=== PATIENT | male | born 1990 | race African-American/Black ===

== ENCOUNTER 2021-06-19 06:53 | Emergency (ER) | payer MEDICAID, SELFPAY ==
[2021-06-19] VITALS (16 sets, daily range): BP systolic 122–156; BP diastolic 57–83; PULSE 97–121; RESP 14–26; TEMP 37.2–38.9; O2SAT 94–100
--- NOTE | ~2021-06-19 | CT_ITS ---
EXAMINATION: CT abdomen pelvis w con DATE: 06/19/2021 13:13 INDICATION: Abdominal pain. TECHNIQUE: Computed tomography (CT) of the abdomen and pelvis was performed with 100 mL Omnipaque 350 intravenous contrast. Automated exposure control and iterative reconstruction technique were employe d. The dose-length product was 1482.10 mGy-cm. COMPARISON: None. FINDINGS: The visualized portions of the lung bases demonstrate minimal atelectasis on the left. No p leural effusion. The heart size is normal. No pericardial effusion. The liver, gallbladder, spleen, p ancreas, adrenal glands, and right kidney are normal. There is a 2 mm stone in left kidney. There are no dilated loops of bowel. The appendix is normal. The bones are unremarkable. IMPRESSION: 1. Small nonobstructing left kidney stone. Reviewed, dictated and finalized at location [facility]
--- NOTE | ~2021-06-19 | XR_ITS ---
EXAMINATION: XR chest 1V portable DATE: 06/19/2021 08:10 INDICATION: Cough. TECHNIQUE: A single frontal view of the chest was obtained. COMPARISON: None. FINDINGS: There is no pneumonia, pleural effusion, or pneumothorax. The heart size is normal. IMPRESSION: 1. No acute cardiopulmonary disease. Reviewed, dictated and finalized at location [facility]. [facility]
--- NOTE | 2021-06-19 07:23 | ECG_ITS ---
Measurements Intervals [place] Rate: 110 P: 52 [place]: 160 QRS: 62 QRSD: 105 T: 36 QT: 319 QTc: 433 Interpretive Statements SINUS TACH[address] ST ELEVATION IN DIFFUSE LEADS- PROBABLY EARLY REPOLARIZATION ABNORMALITY BASELINE ARTIFACT- II, V3-V6 ABNORMAL ECG Electronically Signed On 06-19-2021 8:34:09 [employer] by Misha Johnson D.O.
--- NOTE | 2021-06-19 07:49 | ED.SOB ---
HPI - SOB/Dyspnea General Chief Complaint: Shortness of Breath/Dyspnea Stated Complaint: Flu like symptoms w/ Hx asthma Time Seen by Provider: 06/19/21 07:22 Source: RN notes reviewed History of Present Illness HPI Narrative: Patient presents emergency department from home for shortness of breath. Patient states that starting last night he began to feel ill with fevers body aches cough this been nonproductive shortness of breath nausea vomiting and abdominal pain described as cramping he states he does have a history of asthma and tried using his inhaler at home with minimal relief he states he did not take any medication for his temperature. States he did not receive the COVID-19 vaccination patient states that his cough has been nonproductive Related Data Allergies Allergy/AdvReac Type Severity Reaction Status Date / Time No Known Allergies Allergy Verified 06/19/21 07:02 Review of Systems Review of Systems: Gen.: [place] fever Eyes: Denies eye pain or visual change ENT: Reports rhinorrhea Respiratory: See HPI CV: Denies chest pain or palpitations GI: Reports abdominal pain nausea and vomiting denies diarrhea denies burning, urgency, frequency or hematuria Musculoskeletal: Denies generalized muscle aches Neuro: Denies numbness, tingling, weakness or focal weakness Skin: Denies rash Except as documented, all other systems reviewed and negative [facility] Past Medical History Medical History (Updated 06/19/21 @ 14:34 by Douglas Maria DO) Asthma Social History Social History (Updated 06/19/21 @ 07:50 by Douglas Maria DO) Smoking status: Never smoker Exam Narrative: APPEARANCE: No acute distress, nontoxic, resting in bed EYES: EOMI HEENT: Normocephalic, atraumatic, OMM Respiratory: Respiratory distress wheezing throughout the bilateral lung henriquez with decreased breath sounds in the lung bases CARDIOVASCULAR: Regular rate and rhythm without murmurs rubs or gallops. ABDOMINAL: Soft, nontender, nondistended, no rebound or guarding MUSCULOSKELETAl: Moves all extremities. No clubbing, cyanosis or edema. NEURO: Awake and alert. Following commands, speech normal, no focal deficits SKIN:: Warm, dry. No rashes lesions or abrasions PSYCHIATRIC: Normal affect/mood, Course Course Emergency Course: Patient given breathing treatment in ED with resolution of wheezing Patient given p.o. challenge continues to be nauseous will give additional medication at this time obtain CT of the abdomen pelvis Patient states he is feeling much better at this time states wheezing is mildly reoccurred breathing treatment given with resolution states he is ready for discharge discussed Covid swab and need for self-isolation Discussed with patient results of workup and diagnosis. Discussed need for follow-up with primary care, proper use of medication, and reasons to return to the emergency department. Patient understands and agrees to current treatment plan Vital Signs Vital signs: Vital Signs Temperature 102.0 F H 06/19/21 07:03 Pulse Rate 121 H 06/19/21 07:03 Respiratory Rate 24 H 06/19/21 07:03 Blood Pressure 135/64 06/19/21 07:03 Pulse Oximetry 98 06/19/21 07:03 Temperature 99 F 06/19/21 08:31 Pulse Rate 102 H 06/19/21 14:33 Respiratory Rate 26 H 06/19/21 14:33 Blood Pressure 139/71 06/19/21 14:33 Pulse Oximetry 97 06/19/21 14:33 MDM - SOB/Dyspnea Lab Data Result diagrams: 06/19/21 07:44 06/19/21 07:44 Labs: Lab Results 06/19/21 06/19/21 06/19/21 Range/Units 07:44 07:44 07:44 WBC 4.9 (4.5-10.0) K/mm3 RBC 4.36 L (4.6-6.20) M/mm3 Hgb 13.5 L (14.0-18.0) g/dL Hct 40.9 L (42.0-52.0) % MCV 93.8 (80-100) fl MCH 31.0 (26-34) pg MCHC 33.0 (32-36) g/dl RDW 13.0 (11.5-14.5) % Plt Count 173 (150-375) k/mm3 MPV 12.9 H (7.4-10.4) fl Immature Gran % (Auto) 0.4 (0-0.5) % Neut % (Auto) 75.7 H (45.5-73.1) % L
[2021-06-19 07:55] LABS: Basophils Percent Auto 0.4 % (0.2-1.2); Eosinophils Percent Auto 0.8 % (0-4.4); Hematocrit 40.9 % (42.0-52.0); Hemoglobin 13.5 g/dL (14.0-18.0); Immature Granulocyte Absolute 0.02 K/mm3 (0.00-0.031); Immature Granulocyte Percent A 0.4 % (0-0.5); Lymphocytes Absolute Auto 0.25 K/mm3 (0.9-3.2); Lymphocytes Percent Auto 5.1 % (18.3-44.2); Mean Corpuscular Volume 93.8 fl (80-100); Mean Platelet Volume 12.9 fl (7.4-10.4); Monocytes Absolute Auto 0.9 K/mm3 (0.1-0.6); Monocytes Percent Auto 17.6 % (2.6-8.5); Neutrophils Absolute Auto 3.7 K/mm3 (1.3-6.7); Neutrophils Percent Auto 75.7 % (45.5-73.1); Platelet Count Result 173 k/mm3 (150-375); Red Blood Count 4.36 M/mm3 (4.6-6.20); White Blood Count 4.9 K/mm3 (4.5-10.0)
[2021-06-19] MEDS: SODIUM CHLORIDE 0.9% IV 1,000 ML 999 ML IV CONT ×2 (08:02→10:30)
[2021-06-19] MEDS: methylPREDNISolone SOD SUCC 125 MG VIAL IV PUSH (08:02)
[2021-06-19 08:05] LABS: INR 1.2; Lactic Acid Reflex 0.8 mmol/L (0.7-2.1); Prothrombin Time 14.8 Seconds (11.1-14.7)
[2021-06-19 08:06] LABS: Partial Thromboplastin Time 30.4 SECONDS (22.3-36.8)
[2021-06-19 08:08] LABS: D Dimer 0.33 ug/mL (<0.48)
[2021-06-19 08:09] LABS: Alanine Aminotransferase 33 U/L (4-50); Albumin Level 4.6 g/dL (3.5-5.1); Alkaline Phosphatase 58 U/L (38-126); Anion Gap 12 mmol/L (8-16); Aspartate Amino Transferase 48 U/L (17-59); Blood Urea Nitrogen 9 mg/dL (9-20); CRP 0.9 mg/dL (<1.0); Calcium 9.1 mg/dL (8.4-10.2); Carbon Dioxide 22 mmol/L (22-30); Chloride 104 mmol/L (98-107); Estimated CRCL calculation 111 ml/min; Estimated Glomerular Filt Rate > 60; Glucose 107 mg/dL (65-110); Lactate Dehydrogenase 522 U/L (313-618); Potassium 3.6 mmol/L (3.4-5.0); Sodium 138 mmol/L (137-145)
[2021-06-19 08:29] LABS: Add Urine Microscopic? YES; Appearance Urine Clear (Clear); Bacteria Urine Trace /hpf; Bilirubin Urine Negative (Negative); Blood Urine Negative (Negative); Color Urine Yellow (Yellow); Glucose Urine UA Negative (Negative); Ketones Urine Negative (Negative); Leukocyte Esterase Ur Negative LEU/UL (Negative); Mucus Urine Rare /lpf; Nitrate Urine Negative (Negative); Protein Urine Negative (Negative); RBC Urine 0-2 /hpf (0-2); Specific Grav Ur 1.023 (1.001-1.035); Squamous Epithelial Cell Urine Rare /hpf (Few); WBC Urine 0-3 /hpf
[2021-06-19] MEDS: ALBUTEROL SULFATE NEB 2.5 MG/0.5 ML INH 5 MG INHALATION ×2 (08:39→14:10)
[2021-06-19] MEDS: IPRATROPIUM BR 0.02% INH SOLN 0.5 MG/2.5 ML VIAL INHALATION ×2 (08:39→14:10)
[2021-06-19 08:45] LABS: Lipase 39 U/L (23-300)
[2021-06-19] MEDS: PROMETHAZINE HCL 25 MG/ML AMPUL 12.5 MG IV PUSH (12:40)
[2021-06-20 14:14] LABS: SARS-CoV-2 RNA PCR Positive
== END 2021-06-19 15:28 | disposition home or self-care (01) ==
PROVIDERS: Emergency Provider Emergency Medicine
DX: U07.1 COVID-19 (principal); R11.2 Nausea with vomiting, unspecified; J45.909 Unspecified asthma, uncomplicated
CPT/HCPCS: 36415; 71045; 74177; 80053; 81001; 83605; 83615; 83690; 85025; 85380; 85610; 85730; 86140; 87040; 87804; 93005; 94640; 96361; 96365; 96375; 99284; C9803; J0131; J2550; J2930; J7030; Q9967; U0003; U0005

== ENCOUNTER 2022-10-25 05:15 | Emergency (ER) | payer SELFPAY ==
[2022-10-25] VITALS (18 sets, daily range): BP systolic 150–157; BP diastolic 76–93; PULSE 109–137; RESP 10–24; TEMP 38.2; O2SAT 94–100
--- NOTE | ~2022-10-25 | XR_ITS ---
Portable chest x-ray Comparison: 06/19/2021 Clinical History: Dyspnea Findings: Lungs are clear, without focal consolidation or pleural effusion. Cardiomediastinal silho uette is stable. Bones and soft tissues are unremarkable. Impression: Normal chest. Reviewed, dictated and finalized at location . Impression: Normal chest.
--- NOTE | 2022-10-25 05:25 | ED.GENADULT ---
HPI - General Adult General Chief complaint: Shortness of Breath/Dyspnea <Maximilian Duarte MD - Last Filed: 10/25/22 06:28> Stated complaint: asthma <Maximilian Duarte MD - Last Filed: 10/25/22 06:28> Time Seen by Provider: 10/25/22 05:20 <Maximilian Duarte MD - Last Filed: 10/25/22 06:28> History of Present Illness HPI narrative: Patient 32-year-old gentleman presents emergency department with chief complaint of shortness of breath. Patient reports he has history of asthma and reports that over the last couple days has been having some increasing shortness of breath and got worse this evening. Patient reports he has been diffusely wheezing and feels as though there is a little bit of a scratchiness in his throat. Patient reports able to swallow his own secretions reports no difficulty eating or drinking. <Maximilian Duarte MD - Last Filed: 10/25/22 06:28> Related Data Allergies/adverse reactions: Allergies Allergy/AdvReac Type Severity Reaction Status Date / Time No Known Allergies Allergy Verified 10/25/22 06:13 <Maxiimlian Duarte MD - Last Filed: 10/25/22 06:28> Review of Systems Review of Systems: A 10 system review of systems was completed on the patient and is negative except for what is stated in the HPI. Nursing and ancillary documentation was reviewed. <Maximilian Duarte MD - Last Filed: 10/25/22 06:28> PMFSH Past Medical History Medical History: Medical History Asthma <Maximilian Duarte MD - Last Filed: 10/25/22 06:28> Social History Social History: Social History Smoking status: Never smoker <Maximilian Duarte MD - Last Filed: 10/25/22 06:28> Exam Narrative: GENERAL: Well-appearing, well-nourished, and in mild acute respiratory distress. HEAD: Normocephalic, atraumatic. EYES: PERRLA and EOMI. ENT: Nares clear, no rhinorrhea or epistaxis. Mucous membranes moist. NECK: Supple. CHEST: Diffuse wheezing to auscultation. Mild respiratory distress. HEART: Regular rate and rhythm. No murmur heard. Normal peripheral pulses. ABDOMEN: Soft, nontender, nondistended, normal active bowel sounds. EXTREMITIES: Normal range of motion. No edema. SKIN: Warm, dry, no rash. NEURO: No focal deficits. Alert and oriented x3. PSYCH: Normal mood and affect. <Maximilian Duarte MD - Last Filed: 10/25/22 06:28> Course Course Emergency Course: 07:00 - Patient signed out to me by prior ED physician, Dr. Duarte pending repeat labs and reassessment. 07:10 - Evaluated patient, he states he feels overall better but is beginning to wheeze again. Nebs ordered. 07:48 - After repeat nebs, the patient states he feels improved and is comfortable with discharge. I advised the patient to take 4 puffs of albuterol with a spacer once an hour for 3 doses at home followed by albuterol as needed. Discussed return and emergency precautions including signs/symptoms of respiratory distress and ACS. The patient voiced understanding and is comfortable with the plan. All questions answered to his satisfaction. <Cholo Chavez MD - Last Filed: 10/25/22 07:58> Vital Signs Vital signs: Vital Signs Temperature 100.7 F H 10/25/22 05:17 Pulse Rate 131 H 10/25/22 05:17 Respiratory Rate 18 10/25/22 05:17 Blood Pressure 157/93 H 10/25/22 05:17 Pulse Oximetry 96 10/25/22 05:17 Oxygen Delivery Room Air 10/25/22 05:17 Temperature 100.7 F H 10/25/22 05:17 Pulse Rate 116 H 10/25/22 06:32 Respiratory Rate 17 10/25/22 06:32 Blood Pressure 150/76 H 10/25/22 06:32 Pulse Oximetry 98 10/25/22 06:32 Oxygen Delivery Room Air 10/25/22 05:17 <Maximilian Duarte MD - Last Filed: 10/25/22 06:28> Vital Signs Temperature 100.7 F H 10/25/22 05:17 Puls
[2022-10-25] MEDS: LEVALBUTEROL NEB 1.25 MG/3 ML INHALATION ×2 (05:37→07:25)
[2022-10-25] MEDS: IPRATROPIUM BR 0.02% INH SOLN 0.5 MG/2.5 ML VIAL INHALATION (05:37)
--- NOTE | 2022-10-25 05:41 | ECG_ITS ---
Measurements Intervals [place] Rate: 139 P: 52 SD: 144 QRS: 59 QRSD: 100 T: 29 QT: 272 QTc: 414 Interpretive Statements SINUS TACHYCARDIA BORDERLINE R WAVE PROGRESSION, ANTERIOR LEADS ST ELEVATION IN ANTEROLAT/HIGH LAT LEADS- PROBABLY EARLY REPOLARIZATION ABNORMALITY BASELINE ARTIFACT- I, II, AVR, AVL ABNORMAL ECG COMPARED TO ECG 06/19/2021 07:45:42 HEART RATE HAS INCREASED Electronically Signed On 10-25-2022 6:40:27 CDT by Misha Johnson D.O.
[2022-10-25 05:54] LABS: Basophils Percent Auto 0.4 % (0.2-1.2); Eosinophils Absolute Auto 0.1 K/mm3 (0-0.3); Eosinophils Percent Auto 1.4 % (0-4.4); Hematocrit 42.4 % (42.0-52.0); Immature Granulocyte Absolute 0.01 K/mm3 (0.00-0.031); Immature Granulocyte Percent A 0.1 % (0-0.5); Lymphocytes Absolute Auto 0.54 K/mm3 (0.9-3.2); Lymphocytes Percent Auto 7.8 % (18.3-44.2); Mean Corpuscular Hemoglobin 30.6 pg (26-34); Mean Corpuscular Volume 92.8 fl (80-100); Mean Platelet Volume 13.2 fl (7.4-10.4); Monocytes Absolute Auto 0.6 K/mm3 (0.1-0.6); Neutrophils Absolute Auto 5.6 K/mm3 (1.3-6.7); Neutrophils Percent Auto 81.3 % (45.5-73.1); Platelet Count Result 178 k/mm3 (150-375); Red Blood Count 4.57 M/mm3 (4.6-6.20); Red Cell Distribution Width 13.7 % (11.5-14.5); White Blood Count 6.9 K/mm3 (4.5-10.0)
[2022-10-25 06:04] LABS: Alanine Aminotransferase 31 U/L (6-50); Albumin Level 4.8 g/dL (3.5-5.1); Alkaline Phosphatase 45 U/L (38-126); Anion Gap 10 mmol/L (8-16); Aspartate Amino Transferase 37 U/L (17-59); Blood Urea Nitrogen 9 mg/dL (9-20); Calcium 9.3 mg/dL (8.4-10.2); Carbon Dioxide 26 mmol/L (22-30); Chloride 103 mmol/L (98-107); Estimated CRCL calculation 123 ml/min; Estimated Glomerular Filt Rate > 60; Glucose 105 mg/dL (65-110); Sodium 139 mmol/L (137-145)
[2022-10-25] MEDS: MAGNESIUM SULF 2 GM/WATER 50ML 2 GM/50 ML BAG IVPB (06:08)
[2022-10-25] MEDS: ACETAMINOPHEN 500 MG TABLET 1000 MG PO (06:09)
[2022-10-25] MEDS: SODIUM CHLORIDE 0.9% IV 1,000 ML 999 ML IV CONT (06:09)
[2022-10-25 06:28] LABS: Influenza A QL RT-PCR Negative (Negative); Influenza B QL RT-PCR Negative (Negative); RSV RNA, RT-PCR Negative (Negative); SARS-CoV-2 RNA PCR Negative (Negative)
[2022-10-25] MEDS: ALBUTEROL SULFATE (*SP) INHALER 2 PUFF INHALATION (06:30)
[2022-10-25 06:35] LABS: Strep Group A RT-PCR NOT DETECTED (Negative)
== END 2022-10-25 08:11 | disposition home or self-care (01) ==
PROVIDERS: Emergency Medicine; Emergency Provider Preventive Medicine Aerospace Medicine
DX: J45.901 Unspecified asthma with (acute) exacerbation (principal); R00.0 Tachycardia, unspecified; Z20.822 Contact with and (suspected) exposure to COVID-19; R94.31 Abnormal electrocardiogram [ECG] [EKG]
CPT/HCPCS: 36415; 71045; 80053; 85025; 85055; 87637; 87651; 93005; 94640; 96365; 99284; A9270; J3475; J7030